=== PATIENT | female | born 1955 | race Caucasian/White ===

== ENCOUNTER → 2023-09-12 07:00 | Outpatient (REF) | payer BC, SELFPAY ==
[2023-09-12 20:19] LABS: CA 125 27.6 U/mL (0-35)
== END ==
LOC: REG 07:00
PROVIDERS: ATTENDING PHYSICIAN Internal Medicine
DX: Z12.73 Encounter for screening for malignant neoplasm of ovary (principal)
CPT/HCPCS: 36415; 86304

== ENCOUNTER → 2023-12-20 06:32 | Outpatient (REF) | payer BC, SELFPAY ==
[2023-12-20 09:08] LABS: CA 125 26.3 U/mL (0-35)
== END ==
LOC: REG 06:32
PROVIDERS: ATTENDING PHYSICIAN Obstetrics & Gynecology; FAMILY PHYSICIAN Internal Medicine
DX: Z12.73 Encounter for screening for malignant neoplasm of ovary (principal)
CPT/HCPCS: 36415; 86304

== ENCOUNTER → 2023-12-30 18:02 | Outpatient (REF) | payer BC, SELFPAY | LOC: WDC 18:02 | PROVIDERS: ATTENDING PHYSICIAN Obstetrics & Gynecology; FAMILY PHYSICIAN Internal Medicine | DX: Z12.31 Encounter for screening mammogram for malignant neoplasm of breast (principal) | CPT/HCPCS: 77063; 77067 ==

== ENCOUNTER 2024-05-08 17:59 | Emergency (ER) | payer BC, SELFPAY ==
[2024-05-08 18:12] VITALS: BP 127/72
[2024-05-08 20:27] VITALS: BP 132/58
--- NOTE | 2024-05-08 20:47 | ED.MUSCINJ ---
HPI-Injury
General
Chief Complaint: Fall
Source: patient
Exam Limitations: none
Time Seen by Provider: 05/08/24 18:26
Nursing documentation reviewed up to this point in time: agreed with
History of Present Illness-Injury
Initial Injury comments:
68-year-old female states in front of her son's house there is an uneven pavement that she tripped over' face planted. She presents with abrasions of the face and left periorbital swelling. She denies loss of consciousness. Does not have a
significant headache. Denies change in vision. Denies neck pain. Denies chest or back pain and denies pain in her extremities. She has been able to ambulate well. She states she had a tetanus shot within the past 5 years. She is not
anticoagulated.
Past History
Past History
ED Past Medical History: Asthma and Hypercholesterolemia
ED Past Surgical History: Gynecological and Tonsilectomy
Social History
Tobacco: Non-smoker
Alcohol: None
Personal:
Living: with family
Family History
Family History: Negative Diabetes, Hypertension, Early CAD, Asthma or Cancer
Review of Systems
Review of Systems
Allergies reviewed?: Yes
All Other Systems: ROS reviewed and negative except as documented in HPI and ROS
Respiratory: Denies trouble breathing
Cardiac: Denies chest pain
ABD/GI: Denies abdominal pain or nausea
: Denies incontinence
Musculoskeletal: Denies neck pain or back pain
Skin: Reports other (Multiple facial abrasions)
Neurological: Denies dizzy, headache (pain around left eye/cheek), weakness or numbness
Phy Exam
Physical Exam
Physical Exam:
GENERAL: No acute distress. A&Ox3.
CONSTITUTIONAL: Afebrile.
EYES: PERRL, conjunctivae normal, lateral supraorbital swelling and ecchymosis
Neck: Supple
ENMT: moist mucus membranes, Pharynx nl
RESPIRATORY: Regular respirations, nonlabored, lungs clear.
CARDIOVASCULAR: Regular rate and rhythm, no murmurs, no rubs.
GI: Soft, nontender, normal BS
MUSCULOSKELETAL: Moves with ease. Well perfused.
SKIN: Warm, dry, pink. Multiple facial abrasions
PSYCH: Normal mood and affect. Well kept, interactive and appropriate
NEUROLOGIC: Awake, alert and oriented. No focal neurological deficits
Injury Course
Orders/Labs/Results
Orders:
Orders
05/08/24 18:16
CT Head W/o Iv Contrast Urgent
Comment:
Reason For Exam: fall, head strike, swelling to left eye brow
05/08/24 18:17
Facial Bones wo Contrast CT [CT Facial Bones W/o Iv Contras] Urgent
Comment:
Reason For Exam: fall, significan left eye brow swelling
MDM/Problems Addressed
MDM/Problems Addressed:
68-year-old female states in front of her son's house there is an uneven pavement that she tripped over' [employer]. She presents with abrasions of the face and left periorbital swelling. She denies loss of consciousness. Does not have a
significant headache. Denies change in vision. Denies neck pain. Denies chest or back pain and denies pain in her extremities. She has been able to ambulate well. She states she had a tetanus shot within the past 5 years. She is not
anticoagulated.
NAD
Neuro exam is unremarkable
8:45 PM:
Facial CT radiology report read: IMPRESSION:
No acute intracranial abnormality noted.
No displaced facial bone fractures.
Head CT radiology report reviewed:
IMPRESSION:
No acute intracranial abnormality noted.
No displaced facial bone fractures.
Pt OOB and ambulating well.
*Critical Care Note
Total Time (30-74mins, 75-104mins- exclusive of procedures): Not Applicable
ED Attending Note
-
Portions of this chart may have been created with voice recognition software.� Occasional wrong word or��sound alike� substitutions may have occurred due to the inherent limitations of voice recognition software.
Discharge Plan
Departure
Patient Disposition: Home (Routine Discharge)
Date of Disposition: 05/08/24
Time of Disposition: 21:33
Patient with high blood pressure during this ER visit?: No
Condition: Good
Discharge Problem:
Fall from slip, trip, or stumble, Facial abrasion, Contusion of left orbit
Instructions: Head Injury in Adults (DC), Contusion (DC), Skin Abrasions (DC)
Prescriptions:
No Action
fluticasone propionate [Flovent HFA] 1 PUFF HFA aerosol inhaler
2 puff inhalation R BID
albuterol sulfate 1 PUFF HFA aerosol inhaler
1 puff inhalation R [id number] PRN (Reason: wheezing)
Referrals:
Reggie Kelley I., DO [Family Provider] - Follow up in 2-3 days
Activity Restrictions/Additional Instructions:
As we discussed, your head CT and facial bone CT showed nothing fractured or worrisome
Cold compress to the facial swelling 20 minutes off and on throughout the day today and tomorrow to minimize swelling
Tylenol as needed for pain for the next 2 days then you may take ibuprofen if needed
You will probably get a black eye
Return here immediately for confusion, vomiting more than once in 1 hour, headache that gets worse and worse despite Tylenol
Interventions
Interventions:
*Risk Screen - Suicide Last Done: 05/08/24 18:25
*General Assessment Last Done: 05/08/24 18:25
*Neglect/Abuse Screening Last Done: 05/08/24 18:25
*Nursing Disposition Last Done: 05/08/24 21:46
ED-Musculoskeletal Assessment Last Done: 05/08/24 18:25
ED- Neurological Assessment Last Done: 05/08/24 18:25
ED-Skin Assessment Last Done: 05/08/24 18:25
Discharge Date and Time
Discharge Date/Time: 05/08/24 21:46
Print Language: EGYPTIAN
[2024-05-08 21:45] VITALS: BP 133/70
[2024-05-08 21:46] VITALS: BP 133/70
== END 2024-05-08 21:46 | disposition home or self-care (01) ==
LOC: EMR 17:59
PROVIDERS: EMERGENCY PHYSICIAN Emergency Medicine; FAMILY PHYSICIAN Internal Medicine
DX: S05.12XA Contusion of eyeball and orbital tissues, left eye, initial encounter (principal); W01.0XXA Fall on same level from slipping, tripping and stumbling without subsequent striking against object, initial encounter; E78.00 Pure hypercholesterolemia, unspecified; J45.909 Unspecified asthma, uncomplicated
CPT/HCPCS: 99284; 70450; 70486

== ENCOUNTER → 2024-08-01 07:15 | Outpatient (REF) | payer BC, SELFPAY ==
[2024-08-01 08:30] LABS: % Basophils 0.9 % (0-2); % Eosinophils 8.6 % (0-6); % Immature Granulocytes 0.2 % (0-0.5); % Lymphocytes 20.3 % (20.5-51.1); % Monocytes 7.4 % (1.7-9.3); % Neutrophils 62.6 % (42.2-75.2); Absolute Basophils 0.1 10^3/uL (0-0.2); Absolute Eosinophils 0.8 10^3/uL (0-0.7); Absolute Lymphocytes 1.9 10^3/uL (1.2-3.4); Absolute Monocytes 0.7 10^3/uL (0.1-0.6); Absolute Neutrophils 5.7 10^3/uL (1.4-6.5); Hematocrit 40.7 % (37.0-47.0); Hemoglobin 13.9 g/dL (12.0-16.0); Mean Corp Hgb Conc. 34.2 g/dL (33.0-37.0); Mean Corpuscular Hgb 30.3 pg (27.0-31.0); Mean Corpuscular Volume 88.9 fL (81.0-99.0); Mean Platelet Volume 9.3 fL (7.4-10.4); Nucleated Red Blood Cells % 0 %; Platelet Count 369 10^3/uL (130-400); Red Blood Cell Count 4.58 10^6/uL (4.20-5.40); Red Cell Dist. Width 12.4 % (11.5-14.5); White Blood Cell Count 9.1 10^3/uL (4.8-10.8)
[2024-08-01 09:03] LABS: ALT (SGPT) 22 U/L (0-35); AST (SGOT) 28 U/L (14-36); Albumin 4.2 g/dl (3.5-5.0); Alkaline Phosphatase 102 U/L (38-126); Blood Urea Nitrogen 27 mg/dl (7-17); Calcium 9.5 mg/dl (8.4-10.2); Carbon Dioxide 26 mmol/L (22-30); Chloride 102 mmol/L (98-107); Glucose 97 mg/dl (70-99); HDL Cholesterol 94 mg/dl; LDL Cholesterol, Calculated 118 mg/dl; Potassium 4.5 mmol/L (3.5-5.1); Sodium 137 mmol/L (135-145); Total Bilirubin 0.6 mg/dl (0.2-1.3); Total Cholesterol 226 mg/dl (50-199); Total Protein 6.6 g/dl (6.3-8.2); Triglyceride 71 mg/dl (10-149); Very Low Density Lipoprotein 14 mg/dl (0-30); eGFR > 60.00
[2024-08-01 09:28] LABS: TSH Reflex To Free T4 2.67 uIU/ml (0.47-4.68)
[2024-08-01 09:36] LABS: CA 125 25.5 U/mL (0-35)
== END ==
LOC: REG 07:15
PROVIDERS: ATTENDING PHYSICIAN Internal Medicine
DX: I10 Essential (primary) hypertension (principal); Z79.899 Other long term (current) drug therapy; Z12.73 Encounter for screening for malignant neoplasm of ovary; R53.83 Other fatigue
CPT/HCPCS: 36415; 80053; 80061; 84443; 85025; 86304

== ENCOUNTER → 2024-12-30 17:31 | Outpatient (REF) | payer BC, SELFPAY | LOC: WDC 17:31 | PROVIDERS: ATTENDING PHYSICIAN Obstetrics & Gynecology; FAMILY PHYSICIAN Internal Medicine | DX: Z12.31 Encounter for screening mammogram for malignant neoplasm of breast (principal) | CPT/HCPCS: 77063; 77067 ==

== ENCOUNTER → 2025-02-11 06:55 | Outpatient (REF) | payer BC, SELFPAY ==
[2025-02-11 18:49] LABS: CA 125 23.6 U/mL (0-35)
== END ==
LOC: REG 06:55
PROVIDERS: ATTENDING PHYSICIAN Obstetrics & Gynecology
DX: Z12.73 Encounter for screening for malignant neoplasm of ovary (principal)
CPT/HCPCS: 36415; 86304

== ENCOUNTER → 2025-03-08 08:09 | Outpatient (REF) | payer BC, SELFPAY | LOC: RAD 08:09 | PROVIDERS: ATTENDING PHYSICIAN Obstetrics & Gynecology; FAMILY PHYSICIAN Internal Medicine; REFERRING PHYSICIAN Family Medicine | DX: Z78.0 Asymptomatic menopausal state (principal) | CPT/HCPCS: 77080 ==

== ENCOUNTER → 2025-07-09 08:45 | Outpatient (REF) | payer BC, SELFPAY | LOC: WDC 08:45 | PROVIDERS: ATTENDING PHYSICIAN Obstetrics & Gynecology; FAMILY PHYSICIAN Internal Medicine | DX: R92.2 Inconclusive mammogram (principal) | CPT/HCPCS: 76641 ==